=== PATIENT | female | born 1960 | race Caucasian/White ===

== ENCOUNTER 2016-08-22 23:56 | Emergency (ER) | payer OTHER ==
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
--- NOTE | 2016-08-23 02:08 | ED ORDER SUMMARY ---
..... Patient: MARYANA KATE [facility] VisitID: [id number] [address] [place] [address] 56y, F Registration Date/Time: 08/22/2016 ORDER SHEET Weight: 118.8 kg Allergies: Percocet GENERAL ORDERS: UA-Culture if indicated Urgent (00:14 08/23/2016 Candi Warren) (0:15 TBowen R.N.) CBC w Diff Urgent (00:24 08/23/2016 Candi Warren) (Ack 0:29 SRedmond) (0:38 TBowen R.N.) CMP Urgent (00:24 08/23/2016 Candi Warren) (Ack 0:29 SRedmond) (0:38 TBowen R.N.) CT Abd/Pel wo Cont Urgent (01:22 08/23/2016 Candi Warren) (Ack 1:23 SRedmond) (1:28 RFay) MEDICATION ORDERS: IV FLUIDS: Morphine IV 4 mg (HIGH ALERT MEDICATION, NOW) (00:24 08/23/2016 Candi Warren) (0:38 TBowen R.N.) Zofran IV 4 mg (NOW) (00:24 08/23/2016 Candi Warren) (0:39 TBowen R.N.) Morphine IV 4 mg (HIGH ALERT MEDICATION, NOW) (02:07 08/23/2016 Candi Warren) (2:11 TBowen R.N.) ORDER SHEET NOTES: [Electronically signed by Hilario Padilla Dr. (02:08/23/2016)] [Electronically signed by Mary Bonilla R.N. (02:08/23/2016)] [Electronically locked/signed by Mary Bonilla R.N. (02:08/23/2016)]
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
--- NOTE | 2016-08-23 02:08 | ED ORDER SUMMARY ---
..... Patient: MARYANA KATE OrderSheet [facility] VisitID: [id number] [address] [place] [address] 56y, F Registration Date/Time: 08/22/2016 ORDER SHEET Weight: 118.8 kg Allergies: Percocet GENERAL ORDERS: UA-Culture if indicated Urgent (00:14 08/23/2016 Candi Warren) (0:15 TBowen R.N.) CBC w Diff Urgent (00:24 08/23/2016 Candi Warren) (Ack 0:29 SRedmond) (0:38 TBowen R.N.) CMP Urgent (00:24 08/23/2016 Candi Warren) (Ack 0:29 SRedmond) (0:38 TBowen R.N.) CT Abd/Pel wo Cont Urgent (01:22 08/23/2016 Candi Warren) (Ack 1:23 SRedmond) (1:28 RFay) MEDICATION ORDERS: IV FLUIDS: Morphine IV 4 mg (HIGH ALERT MEDICATION, NOW) (00:24 08/23/2016 Candi Warren) (0:38 TBowen R.N.) Zofran IV 4 mg (NOW) (00:24 08/23/2016 Candi Warren) (0:39 TBowen R.N.) Morphine IV 4 mg (HIGH ALERT MEDICATION, NOW) (02:07 08/23/2016 Candi Warren) (2:11 TBowen R.N.) ORDER SHEET NOTES: [Electronically signed by Hilario Padilla Dr. (02:08/23/2016)] [Electronically signed by Mary Bonilla R.N. (02:08/23/2016)] [Electronically locked/signed by Mary Bonilla R.N. (02:08/23/2016)]
--- NOTE | 2016-08-23 02:20 | ED MAR SUMMARY ---
..... Medication Administration Record [facility] [address] [place] [address] Patient: MARYANA KATE Visit ID: [id number] 56y, F Weight: 118.8 kg Height/Length: 67 in BMI: 41.1 ALLERGIES: Percocet Given 00:38 08/23/2016 Maine Velasco Medication Administered: MORPHINE [IVP], Dose: 4 mg IVP over 2 minute(s), Site: #1 right AC. Medication Ordered: Morphine IV 4 mg (HIGH ALERT MEDICATION, NOW). Given 00:39 08/23/2016 Maine Velasco Medication Administered: ZOFRAN [IVP] (ONDANSETRON HCL), Dose: 4 mg IVP over 2 minute(s), Site: #1 right AC. Medication Ordered: Zofran IV 4 mg (NOW). Given 02:11 08/23/2016 Maine Velasco Medication Administered: MORPHINE [IVP], Dose: 4 mg IVP over 2 minute(s), Site: #1 right AC. Medication Ordered: Morphine IV 4 mg (HIGH ALERT MEDICATION, NOW).
--- NOTE | 2016-08-23 02:20 | ED MED RECONCILIATION SUMMARY ---
Patient: MARYANA KATE Medication Reconciliation Report [facility] VisitID: [id number] [address] [place] [address] 56y, F Registration Date/Time: 08/22/2016 Weight: 118.8 kg Height/Length: 67 in. BMI: 41.1 ALLERGIES: Percocet The patient's Home Medications are listed below: STOP TAKING THE FOLLOWING MEDICATIONS: Vicodin Oral 7.5 mg, PRN CONTINUE TAKING THE FOLLOWING MEDICATIONS: Allopurinol Oral 300 mg, daily ALPRAZolam Oral 0.5 mg Aspirin Oral (81 mg) 1 tablet, daily Atenolol Oral 50 mg, daily ClonazePAM Oral 0.5 mg, at bedtime Flunisolide Nasal Genvoya, daily Hydrochlorothiazide Oral 25 mg, daily LamoTRIgine Oral (200 mg) 1 tablet Loperamide HCl Oral 2 mg or more, daily Pravastatin Sodium Oral 40 mg, daily QUEtiapine Fumarate Oral 100 mg, 1.5 tabs at hs Ranitidine HCl Oral 150 mg, 2x a day ValACYclovir HCl Oral (500 mg) 1 tablet, daily Vitamins daily The source(s) of the original Home Medication information: Not obtained. The following Medications were given to the patient in the Emergency Department: Morphine [IVP] IVP 4 mg, administered: 08/23/2016 12:38:00 AM Zofran [IVP] IVP 4 mg, administered: 08/23/2016 12:39:00 AM Morphine [IVP] IVP 4 mg, administered: 08/23/2016 2:11:00 AM The following Medications were prescribed to the patient: Zofran ODT 4 mg: take 1 orally every 6 hours as needed for nausea and vomiting. Dispense ten (10). No refill. Substitution is permissible. -- Hilario Padilla Dr. OxyIR 5 mg capsules: take 1 orally every 6 hours as needed for pain. Dispense fifteen (15). No refill. -- Hilario Padilla Dr.
--- NOTE | 2016-08-23 02:20 | ED MED RECONCILIATION SUMMARY ---
Patient: MARYANA KATE Medication Reconciliation Report [facility] VisitID: [id number] [address] [place] [address] 56y, F Registration Date/Time: 08/22/2016 Weight: 118.8 kg Height/Length: 67 in. BMI: 41.1 ALLERGIES: Percocet The patient's Home Medications are listed below: STOP TAKING THE FOLLOWING MEDICATIONS: Vicodin Oral 7.5 mg, PRN CONTINUE TAKING THE FOLLOWING MEDICATIONS: Allopurinol Oral 300 mg, daily ALPRAZolam Oral 0.5 mg Aspirin Oral (81 mg) 1 tablet, daily Atenolol Oral 50 mg, daily ClonazePAM Oral 0.5 mg, at bedtime Flunisolide Nasal Genvoya, daily Hydrochlorothiazide Oral 25 mg, daily LamoTRIgine Oral (200 mg) 1 tablet Loperamide HCl Oral 2 mg or more, daily Pravastatin Sodium Oral 40 mg, daily QUEtiapine Fumarate Oral 100 mg, 1.5 tabs at hs Ranitidine HCl Oral 150 mg, 2x a day ValACYclovir HCl Oral (500 mg) 1 tablet, daily Vitamins daily The source(s) of the original Home Medication information: Not obtained. The following Medications were given to the patient in the Emergency Department: Morphine [IVP] IVP 4 mg, administered: 08/23/2016 12:38:00 AM Zofran [IVP] IVP 4 mg, administered: 08/23/2016 12:39:00 AM Morphine [IVP] IVP 4 mg, administered: 08/23/2016 2:11:00 AM The following Medications were prescribed to the patient: Zofran ODT 4 mg: take 1 orally every 6 hours as needed for nausea and vomiting. Dispense ten (10). No refill. Substitution is permissible. -- Hilario Padilla Dr. OxyIR 5 mg capsules: take 1 orally every 6 hours as needed for pain. Dispense fifteen (15). No refill. -- Hilario Padilla Dr.
--- NOTE | 2016-08-23 02:20 | ED DISCHARGE INSTRUCTIONS ---
Patient: MARYANA KATE General Instructions [facility] VisitID: [id number] [place] [address] 56y, F Registration Date/Time: 08/22/2016 Acute nontraumatic lumbar back pain associated with muscle strain. INSTRUCTIONS Your Current Medications: STOP TAKING THE FOLLOWING MEDICATIONS: Vicodin Oral : 7.5 mg PRN. CONTINUE TAKING THE FOLLOWING MEDICATIONS: Allopurinol Oral : 300 mg daily. ALPRAZolam Oral : 0.5 mg, prn. Aspirin Oral : Tablet Chewable 81 mg, 1 tablet daily. Atenolol Oral : 50 mg daily. ClonazePAM Oral : 0.5 mg at bedtime. Flunisolide Nasal. Genvoya* : daily. Hydrochlorothiazide Oral : 25 mg daily. LamoTRIgine Oral : Tablet Dispersible 200 mg, 1 tablet. Loperamide HCl Oral : 2 mg or more daily. Pravastatin Sodium Oral : 40 mg daily. QUEtiapine Fumarate Oral : 100 mg 1.5 tabs at hs. Ranitidine HCl Oral : 150 mg 2x a day. ValACYclovir HCl Oral : Tablet 500 mg, 1 tablet daily. Vitamins daily*. Prescription Medications: Zofran ODT 4 mg: take 1 orally every 6 hours as needed for nausea and vomiting. Dispense ten (10). No refill. Substitution is permissible. OxyIR 5 mg capsules: take 1 orally every 6 hours as needed for pain. Dispense fifteen (15). No refill. Follow-up: Follow up with your doctor in about two days. Call for an appointment. Blood pressure screening was not performed during this visit because the patient has an active diagnosis of hypertension. ADDITIONAL INFORMATION Back Pain [Acute Or Chronic] Back pain is usually caused by an injury to the muscles or ligaments of the spine. Sometimes the disks that separate each bone in the spine may bulge and cause pain by pressing on a nearby nerve. Back pain may also appear after a sudden twisting/bending force (such as in a car accident), after a simple awkward movement, or lifting something heavy with poor body positioning. In either case, muscle spasm is often present and adds to the pain. Acute back pain usually gets better in one to two weeks. Back pain related to disk disease, arthritis in the spinal joints or spinal stenosis (narrowing of the spinal canal) can become chronic and last for months or years. Unless you had a physical injury (for example, a car accident or fall) X-rays are usually not ordered for the initial evaluation of back pain. If pain continues and does not respond to medical treatment, x-rays and other tests may be performed at a later time. Home Care: You may need to stay in bed the first few days. But, as soon as possible, begin sitting or walking to avoid problems with prolonged bed rest (muscle weakness, worsening back stiffness and pain, blood clots in the legs). When in bed, try to find a position of comfort. A firm mattress is best. Try lying flat on your back with pillows under your knees. You can also try lying on your side with your knees bent up towards your chest and a pillow between your knees. Avoid prolonged sitting. This puts more stress on the lower back than standing or walking. During the first two days after injury, apply an ICE PACK to the painful area for 20 minutes every 2-4 hours. This will reduce swelling and pain. HEAT (hot shower, hot bath or heating pad) works well for muscle spasm. You can start with ice, then switch to heat after two days. Some patients feel best alternating ice and heat treatments. Use the one method that feels the best to you. You may use acetaminophen (Tylenol) or ibuprofen (Motrin, Advil) to control pain, unless another pain medicine was prescribed. [NOTE: If you have chronic liver or kidney disease or ever had a stomach ulcer or GI bleeding, talk with your doctor before using these medicines.] Be aware of safe lifting methods and do not lift anything over 15 pounds until all the pain is gone. Follow Up with your doctor or this facility if your symptoms do not start to improve after one week. Physical therapy may be needed. [NOTE: If X-rays were taken, they will be reviewed by a radiologist. You will be notified of any new findings that may affect your care.] Get Prompt Medical Attention if any of the following occur: Pain becomes worse or spreads to your legs Weakness or numbness in one or both legs Loss of bowel or bladder control Numbness in the groin or genital area Ondansetron Oral disintegrating tablet What is this medicine? ONDANSETRON (on SANGEETHA se jerman) is used to treat nausea and vomiting caused by chemotherapy. It is also used to prevent or treat nausea and vomiting after surgery. How should I use this medicine? These tablets are made to dissolve in the mouth. Do not try to push the tablet through the foil backing. With dry hands, peel away the foil backing and gently remove the tablet. Place the tablet in the mouth and allow it to dissolve, then swallow. While you may take these tablets with water, it is not necessary to do so. Talk to your creative coordinator regarding the use of this medicine in children. Special care may be needed. What side effects may I notice from receiving this medicine? Side effects that you should report to your doctor or health critical care transport nurse as soon as possible: allergic reactions like skin rash, itching or hives, swelling of the face, lips, or tongue breathing problems dizziness fast or irregular heartbeat feeling faint or lightheaded, falls fever and chills swelling of the hands and feet tightness in the chest Side effects that usually do not require medical attention (report to your doctor or health critical care transport nurse if they continue or are bothersome): constipation or diarrhea headache What may interact with this medicine? Do not take this medicine with any of the following medications: -apomorphine -cisapride -dofetilide -dronedarone -pimozide -thioridazine -ziprasidone This medicine may also interact with the following medications: -carbamazepine -phenytoin -rifampicin -tramadol -other medicines that prolong the QT interval (cause an abnormal heart rhythm) What if I miss a dose? If you miss a dose, take it as soon as you can. If it is almost time for your next dose, take only that dose. Do not take double or extra doses. Where should I keep my medicine? Keep out of the reach of children. Store between 2 and 30 degrees C (36 and 86 degrees F). Throw away any unused medicine after the expiration date. What should I tell my health care provider before I take this medicine? They need to know if you have any of these conditions: heart disease history of irregular heartbeat liver disease low levels of magnesium or potassium in the blood an unusual or allergic reaction to ondansetron, granisetron, other medicines, foods, dyes, or preservatives or trying to get breast-feeding What should I watch for while using this medicine? Check with your doctor or health critical care transport nurse as soon as you can if you have any sign of an allergic reaction. You have been given the following additional information: Back Pain (Acute Or Chronic) Ondansetron Oral disintegrating tablet (Electronically signed by Hilario Padilla Dr. 08/23/2016 2:10)
--- NOTE | 2016-08-23 02:20 | ED MAR SUMMARY ---
..... Medication Administration Record [facility] [address] [place] [address] Patient: MARYANA KATE Visit ID: [id number] 56y, F Weight: 118.8 kg Height/Length: 67 in BMI: 41.1 ALLERGIES: Percocet Given 00:38 08/23/2016 [place] Medication Administered: MORPHINE [IVP], Dose: 4 mg IVP over 2 minute(s), Site: #1 right AC. Medication Ordered: Morphine IV 4 mg (HIGH ALERT MEDICATION, NOW). Given 00:39 08/23/2016 [place] Medication Administered: ZOFRAN [IVP] (ONDANSETRON HCL), Dose: 4 mg IVP over 2 minute(s), Site: #1 right AC. Medication Ordered: Zofran IV 4 mg (NOW). Given 02:11 08/23/2016 [place] Medication Administered: MORPHINE [IVP], Dose: 4 mg IVP over 2 minute(s), Site: #1 right AC. Medication Ordered: Morphine IV 4 mg (HIGH ALERT MEDICATION, NOW).
--- NOTE | 2016-08-24 08:58 | DIAGNOSTIC IMAGING REPORT ---
PROCEDURE: CT ABDOMEN/PELVIS W/O CONTRAST INDICATION: FLANK PAIN TECHNIQUE: Axial CT images were obtained through the abdomen and pelvis without IV contrast. Coronal and sagittal reformations were created. COMPARISON: None. FINDINGS: Clear lung bases. Normal sized heart. No hiatal hernia. Minor scattered patches of hypodensity in the liver suggestive of fat infiltration. Right renal atrophy and cortical scarring/lobulation. Two punctate parenchymal intrarenal calcifications, unlikely to be within the collecting system. The left kidney appears normal. No hydroureter. Supraumbilical ventral abdominal wall defect just to the right of midline containing a loop of unobstructed transverse colon. The neck measures 3.5 cm. More caudally, there is a tiny infraumbilical fat containing hernia with a neck measuring 18 mm. The unenhanced appearance of the gallbladder, adrenal glands, pancreas and spleen is normal. The abdominal aorta is normal in its course and caliber. There are no suspicious calcifications, retroperitoneal adenopathy or masses. The stomach, upper bowel loops, and mesentery are normal. Intact anterior abdominal wall. No free fluid or inflammation. The unenhanced appearance of the urinary bladder, pelvic vessels, and pelvic bowel loops is normal. Normal appendix. No suspicious calcifications, free pelvic fluid or mass. Severe degenerative disc height loss at the L5-S1 level. Minor sclerotic changes of the medial femoral heads of avascular necrosis without femoral head collapse. IMPRESSION: 1. No evidence of obstructive uropathy. 2. Right renal atrophy and cortical scarring with dystrophic parenchymal calcification. 3. No evidence of periappendiceal inflammation. 4. Degenerative disc change at L5-S1. 5. Unobstructed transverse colon containing ventral hernia. 6. Status post hysterectomy. 7. Preliminary report by Dr. Henry Palacios of [email or web address] radiology. All CT scans at this facility use dose modulation, iterative reconstruction, and/or weight-based dosing when appropriate to reduce radiation dose to as low as reasonably achievable.
== END 2016-08-23 02:12 | disposition home or self-care (01) ==
LOC: ED SRH 23:56
DX: S39.012A Strain of muscle, fascia and tendon of lower back, initial encounter (principal); I10 Essential (primary) hypertension; Z79.899 Other long term (current) drug therapy
CPT/HCPCS: 90004; 90100; 90469; 90627; 95059